=== PATIENT | male | born 1985 | race Caucasian/White ===

== ENCOUNTER 2020-01-04 17:28 | Emergency (ER) | payer OTHER, MEDICARE ==
[~2020-01-04] VITALS: Ht 177.8 cm; Wt 83.9 kg
[~2020-01-04 17:28] MED LIST: AMOX500 PO; AZIT500 PO; Amoxicillin500 MG PO; Benadryl A12.5 MG/5 PO; CEPH500 PO; CIME400 PO; CLIN150 PO; CLON.5 PO; CRUTCH4 USE; CYCL10 PO; Cephalexin500 MG PO; Cleocin HCl150 MG PO; Cyclobenzaprine5 MG PO; DIPATR PO; DULO30; Flomax0.4 MG PO; HYDACE10B PO; HYDACE5 PO; IBUP600 PO; IBUP800; IBUP800 PO; KETO10 PO; LATUDA80 MG PO; MEDICAL MARIJUANA; Norco 5-325 Ta1 EACH PO; OMEP20ER PO; OXYACE5T PO; PENVK500 PO; PRED10 PO; PROACE100 PO; PROBIOTIC1 EAC1 PO; PSEU120ER PO; Percocet 5-3251 EACH PO; Prednisone20 MG PO; RANI150 PO; RXAMOX500 PO; RXOXYACE PO; RXPROACE PO; SULTRIDS PO; TOBR.3OPSO OP; TRAM50 PO; TRAZ50; Zofran4 MG PO
[2020-01-04] MEDS ORDERED: Norco 5-325 Ta1 EACH PO (18:39)
[2020-01-04] MEDS ORDERED: IBUP800 PO (18:39)
== END 2020-01-04 18:45 | disposition home or self-care (01) ==
LOC: ER 17:28
DX: S00.83XA Contusion of other part of head, initial encounter (principal); S20.219A Contusion of unspecified front wall of thorax, initial encounter; M79.7 Fibromyalgia; F31.9 Bipolar disorder, unspecified; F41.9 Anxiety disorder, unspecified; F43.10 Post-traumatic stress disorder, unspecified; F17.210 Nicotine dependence, cigarettes, uncomplicated; Z88.1 Allergy status to other antibiotic agents; Z88.5 Allergy status to narcotic agent; Z88.8 Allergy status to other drugs, medicaments and biological substances; Y04.8XXA Assault by other bodily force, initial encounter
CPT/HCPCS: 70450; 70486; 71045; 99284-25; A9270-GY

== ENCOUNTER 2020-11-27 11:48 | Emergency (ER) | payer OTHER, MEDICARE ==
[~2020-11-27] VITALS: Ht 185.4 cm; Wt 97.5 kg
[2020-11-27] MEDS ORDERED: OMEPRAZOLE20 M1 (11:57)
[2020-11-27] MEDS ORDERED: Seroquel Xr50 MG (11:57)
[2020-11-27] MEDS ORDERED: DIVA250ER (11:57)
[2020-11-27] MEDS ORDERED: Bactrim Ds Tab1 EACH PO (12:49)
[2020-11-27] MEDS ORDERED: CEPH500 PO (12:49)
== END 2020-11-27 12:59 | disposition home or self-care (01) ==
LOC: ER 11:48
DX: L02.416 Cutaneous abscess of left lower limb (principal); L03.116 Cellulitis of left lower limb; F17.210 Nicotine dependence, cigarettes, uncomplicated; Z88.1 Allergy status to other antibiotic agents; Z88.5 Allergy status to narcotic agent; Z79.899 Other long term (current) drug therapy
CPT/HCPCS: 10060; 99283-25; A9270

== ENCOUNTER 2021-03-23 09:06 | Emergency (ER) | payer OTHER, MEDICARE ==
[~2021-03-23] VITALS: Ht 185.4 cm; Wt 99.8 kg
[~2021-03-23 09:06] MED LIST changes: +Bactrim Ds Tab1 EACH PO; +DIVA250ER; +OMEPRAZOLE20 M1; +Seroquel Xr50 MG
[2021-03-23] MEDS ORDERED: HYDHCL25 PO (09:23)
[2021-03-23 10:23] LABS: BASOPHILS ABSOLUTE AUTO 0.02 K/mm3 (0.00-0.23); BASOPHILS PERCENT AUTO 0 % (0-2); EOSINOPHILS ABSOLUTE AUTO 0.09 K/mm3 (0.00-0.68); EOSINOPHILS PERCENT AUTO 1 % (0-6); Hematocrit 45.1 % (37.0-53.0); Hemoglobin 15.6 g/dL (13.5-17.5); IMMATURE GRAN ABSOLUTE AUTO 0.04 K/mm3 (0.00-0.10); IMMATURE GRAN PERCENT AUTO 0 % (0-1); LYMPHOCYTES ABSOLUTE AUTO 2.99 K/mm3 (0.84-5.20); LYMPHOCYTES PERCENT AUTO 27 % (21-46); MONOCYTES ABSOLUTE AUTO 0.82 K/mm3 (0.16-1.47); MONOCYTES PERCENT AUTO 7 % (4-13); Mean Corpuscular HGB 29.5 pg (26.0-34.0); Mean Corpuscular HGB Conc 34.6 g/dL (31.5-36.5); Mean Corpuscular Volume 85 fL (80-100); Mean Platelet Volume 11.3 fL (9.1-12.4); NEUTROPHILS ABSOLUTE AUTO 7.23 K/mm3 (1.96-9.15); NEUTROPHILS PERCENT AUTO 65 % (41-73); Platelet Count 244 K/mm3 (150-400); RDW Standard Deviation 40.3 fL (35.1-46.3); Red Blood Cell Count 5.28 M/mm3 (4.30-5.90); White Blood Cell Count 11.19 K/mm3 (4.00-11.30)
[2021-03-23 10:40] LABS: Source, Urine Clean Catch
[2021-03-23 10:47] LABS: Alanine Aminotransfer (ALT/SGP 24 U/L (12-78); Albumin/Globulin Ratio 1.1 (0.8-1.8); Alk Phos 82 U/L (50-136); Anion Gap 6 mmol/L (6-16); Aspartate Aminotrans (AST/SGOT 15 U/L (12-37); Bilirubin, Total 0.6 mg/dL (0.1-1.0); Blood Urea Nitrogen 14 mg/dL (8-24); Bun/Creatinine Ratio 16.9 (12.0-20.0); CO2, Blood 23 mmol/L (21-32); Calcium, Blood 8.9 mg/dL (8.5-10.1); Chloride, Blood 108 mmol/L (98-108); Creatinine, Blood 0.83 mg/dL (0.60-1.20); Globulin, Blood 3.7 g/dL (2.2-4.0); Glomerular Filtration Rate >60 (60-); Glucose, Blood 100 mg/dL (70-99); Potassium, Blood 3.5 mmol/L (3.5-5.5); Sodium, Blood 137 mmol/L (136-145); Total Protein, Blood 7.7 g/dL (6.4-8.2)
[2021-03-23 10:50] LABS: Appearance, Urine Clear (Clear); Bilirubin, Urine Neg (Neg); Blood, Urine Neg (Neg); Color, Urine Yellow (P-Yellow); Glucose Qualitative, Urine Neg (Neg); Ketones, Urine Neg (Neg); Leukocyte Esterase, Urine Neg (Neg); Nitrite, Urine Neg (Neg); Protein, Urine Neg (Neg); Urobilinogen, Urine NORM (Normal)
== END 2021-03-23 11:41 | disposition home or self-care (01) ==
LOC: ER 09:06
PROVIDERS: Emergency Medicine
DX: S90.31XA Contusion of right foot, initial encounter (principal); D64.9 Anemia, unspecified; F17.210 Nicotine dependence, cigarettes, uncomplicated; Z88.5 Allergy status to narcotic agent; Z88.1 Allergy status to other antibiotic agents; W20.8XXA Other cause of strike by thrown, projected or falling object, initial encounter
CPT/HCPCS: 71045; 73110; 73630; 80053; 81003; 85025; 99283-25

== ENCOUNTER 2021-05-10 22:56 | Emergency (ER) | payer OTHER, MEDICARE ==
[~2021-05-10 22:56] MED LIST changes: +HYDHCL25 PO
== END 2021-05-11 00:13 | disposition left against medical advice (07) ==
LOC: ER 22:56
DX: Z53.21 Procedure and treatment not carried out due to patient leaving prior to being seen by health care provider (principal)

== ENCOUNTER 2024-08-05 14:50 | Emergency (ER) | payer OTHER, MEDICARE ==
[~2024-08-05] VITALS: Ht 185.4 cm; Wt 106.6 kg
[2024-08-05 15:04] VITALS: BP 142/63
[2024-08-05 16:27] LABS: BASOPHILS ABSOLUTE AUTO 0.02 K/mm3 (0.00-0.23); BASOPHILS PERCENT AUTO 0 % (0-2); EOSINOPHILS ABSOLUTE AUTO 0.16 K/mm3 (0.00-0.68); EOSINOPHILS PERCENT AUTO 2 % (0-6); Hematocrit 39.8 % (37.0-53.0); Hemoglobin 13.4 g/dL (13.5-17.5); IMMATURE GRAN ABSOLUTE AUTO 0.02 K/mm3 (0.00-0.10); IMMATURE GRAN PERCENT AUTO 0 % (0-1); LYMPHOCYTES ABSOLUTE AUTO 2.55 K/mm3 (0.84-5.20); LYMPHOCYTES PERCENT AUTO 28 % (21-46); MONOCYTES ABSOLUTE AUTO 0.49 K/mm3 (0.16-1.47); MONOCYTES PERCENT AUTO 6 % (4-13); Mean Corpuscular HGB 28.6 pg (26.0-34.0); Mean Corpuscular HGB Conc 33.7 g/dL (31.5-36.5); Mean Corpuscular Volume 85 fL (80-100); NEUTROPHILS ABSOLUTE AUTO 5.73 K/mm3 (1.96-9.15); NEUTROPHILS PERCENT AUTO 64 % (41-73); Platelet Count 232 K/mm3 (150-400); RDW Coefficient Variation 13.2 % (11.7-14.2); RDW Standard Deviation 41.1 fL (35.1-46.3); Red Blood Cell Count 4.68 M/mm3 (4.30-5.90); White Blood Cell Count 8.97 K/mm3 (4.00-11.30)
[2024-08-05 17:09] LABS: Albumin, Blood 3.9 g/dL (3.4-5.0); Albumin/Globulin Ratio 1.3 (0.8-1.8); Bilirubin, Total 0.6 mg/dL (0.1-1.0); Bun/Creatinine Ratio 17.6 (12.0-20.0); Calcium, Blood 8.4 mg/dL (8.5-10.1); Creatinine, Blood 0.85 mg/dL (0.60-1.20); Globulin, Blood 3.1 g/dL (2.2-4.0); Potassium, Blood 4.2 mmol/L (3.5-5.5)
[2024-08-05] MEDS ORDERED: ASPERFLEX1 EACH TOP ×2 (18:23→18:24)
== END 2024-08-05 18:26 | disposition home or self-care (01) ==
LOC: ER 14:50
PROVIDERS: Student in an Organized Health Care Education/Training Program
DX: M54.2 Cervicalgia (principal); K52.9 Noninfective gastroenteritis and colitis, unspecified; F17.210 Nicotine dependence, cigarettes, uncomplicated; V49.9XXA Car occupant (driver) (passenger) injured in unspecified traffic accident, initial encounter; Z79.899 Other long term (current) drug therapy; Z88.5 Allergy status to narcotic agent; Z88.1 Allergy status to other antibiotic agents
CPT/HCPCS: 74177; 80053; 85025; 99284-25; Q9967